=== PATIENT | female | born 1945 | race Hispanic/Latino ===

== ENCOUNTER 2018-06-19 06:25 | Day surgery (SDC) | payer MEDICARE ==
[2018-06-16 12:52] VITALS: BMI 24.7
--- NOTE | 2018-06-16 21:32 | HP ---
DATE OF EXAM: 06/16/2018 REASON FOR ADMISSION: Left heart cath possible angioplasty, abnormal stress test. BRIEF CLINICAL HISTORY: This is a 73-year-old female with past medical history significant for gouty arthritis, anxiety disorder, headache, two episode of syncope on 03/29/2018. The patient referred for cardiac evaluation. The patient underwent stress test complaining of shortness of breath, dyspnea on exertion. Stress test is abnormal. The patient scheduled for elective cardiac cath possible angioplasty. PAST MEDICAL HISTORY: Significant for gouty arthritis, hypertension, and hyperlipidemia. SOCIAL HISTORY: Denies any history of alcohol abuse. CURRENT MEDICATIONS: The patient is taking melatonin 5 mg daily, fenofibrate that is TriCor 145 mg daily, aspirin 81 mg daily, Clonidine 0.3 mg daily, amlodipine 5 mg daily, Zoloft 50 mg daily, Accupril 40 mg daily, and Pravachol 40 mg daily. ALLERGIES: NO KNOWN DRUG ALLERGIES. RECENT CARDIAC WORKUP FOLLOWS: The patient had an echocardiography done at [facility] dated 06/02/2018, that showed moderate concentric LVH ejection fraction 60% to 65%, no regional wall motion abnormality noted. LV filling pattern consistent with diastolic dysfunction, trace tricuspid valve regurgitation, mild aortic regurgitation noted, trace to mild mitral regurgitation noted dated again 06/06/2014. RV systolic pressure 37.8. The patient had a stress test done. The patient walked on the treadmill with the Garfield protocol, walked for total 9 minutes and 18 seconds. The patient did not develop any chest pain or any symptoms of ischemia but nuclear scan showed abnormal myocardial perfusion study, partially reversible basal anterolateral and inferolateral defect with history of ischemia, ejection fraction reported 67%. PHYSICAL EXAMINATION: VITAL SIGNS: Height of the patient 5 feet 2 inches, weight of the patient 135 pounds, body mass index 24.7 kg/m2, temperature afebrile, heart rate 78, and blood pressure 110/80. HEENT: PERRLA. Extraocular muscles intact. NECK: Supple. No carotid bruits or thyromegaly. CHEST: Clear to auscultation. HEART: S1 and S2 regular. ABDOMEN: Soft. EXTREMITIES: Clubbing and cyanosis, negative. LABORATORY DATA: Blood workup pending. IMPRESSION: A 73-year-old female with past medical history significant for hypertension, hyperlipidemia, gouty arthritis, history of syncope two episode, history of chest pain, dyspnea on exertion, underwent stress test that is abnormal. The patient is scheduled elective cardiac catheterization. The patient also had aortic regurgitation, trace to mild mitral regurgitation and tricuspid regurgitation. RV systolic pressure at 37. RECOMMENDATIONS: Risks, benefits, alteratives discussed with the patient. The patient will proceed for cardiac catheterization. We load with aspirin, Plavix, review the lab when available and proceed for cardiac catheterization. Further recommendation after cardiac catheterization. Thank you Dr. Ji Cheng for providing us the opportunity in taking care of the patient, Denise Garcia. Iona Bean MD
[2018-06-19] MEDS ORDERED: Iohexol 350mgl/ml 50 ML ONE (06:49)
[2018-06-19] MEDS ORDERED: Iodixanol 320 MG/ML 200 ML BOTTLE IV ONE (06:49)
[2018-06-19] MEDS ORDERED: Nitroglycerin 50mg in D5W 50 MG/250 ML BOTTLE IV ONE (06:49)
[2018-06-19] MEDS ORDERED: Lidocaine 2% Inj (20ml) ONE ×2 (06:49→10:13)
[2018-06-19] MEDS ORDERED: Iodixanol 320 MG/ML 100 ML BOTTLE IV ONE (06:49)
[2018-06-19] MEDS ORDERED: Verapamil 2 ML ONE (06:49)
[2018-06-19] MEDS ORDERED: Phenylephrine 10 mg/ml Inj ONE (06:49)
[2018-06-19 07:12] LABS: INR 1.17; PROTHROMBIN TIME 13.2 SECONDS (9.4-12.5)
[2018-06-19 07:14] LABS: BASO # 0.11 K/mm3 (0.0-2.0); BASO % 1.1 % (0.0-3.0); EOS # 0.5 (0.0-0.7); EOS % 5.1 % (1.5-5.0); HEMOGLOBIN 12.7 g/dL (12.0-16.0); LYMPH # 1.9 (1.2-3.4); LYMPH % 19.3 % (22.0-35.0); MEAN CELL VOLUME 88.2 fl (80.0-105.0); MEAN CORPUSCULAR HEMOGLOBIN 28.2 pg (25.0-35.0); MEAN CORPUSCULAR HGB CONC 31.9 g/dl (31.0-37.0); MEAN PLATELET VOLUME 9.3 fl (7.0-11.0); MONO # 0.5 (0.1-0.6); RBC 4.51 10^6/uL (3.5-6.1); RED CELL DISTRIBUTION WIDTH 13.7 % (11.5-14.5)
[2018-06-19 07:19] LABS: CALCIUM 10.1 mg/dL (8.4-10.5)
[2018-06-19 08:01] VITALS: O2SAT 100
[2018-06-19] MEDS ORDERED: Midazolam 2 MG/2 ML VIAL ONE (09:16)
[2018-06-19] MEDS ORDERED: Eptifibatide 20 mg/10mL Inj IVP ONE (09:51)
[2018-06-19] MEDS ORDERED: Sodium Chloride 0.9% 1,000 ML IV SCH (11:30)
--- NOTE | 2018-06-19 12:27 | CPOSTOP ---
DATE: 06/19/2018 CARDIOVASCULAR LAB POSTPROCEDURE NOTE PHYSICIAN: Iona Bean MD RENAL TECHNICIAN: Rafael Yip. TYPE OF ANESTHESIA: Moderate conscious sedation. Total 2 mg of Versed and 100 of fentanyl given, periodically. Started 1 mg of Versed and 50 of fentanyl. PRE-PROCEDURE DIAGNOSIS: Syncope, abnormal stress test. PROCEDURES PERFORMED: 1. Left heart catheterization. 2. Attempted percutaneous transluminal coronary angioplasty of mid circumflex chronic total occlusions. FINDINGS: Mild to moderate disease in the LAD. Mild to moderate disease in the RCA. Circumflex totally occluded. Preserved LV function. FINAL DIAGNOSIS: Single-vessel coronary artery disease. POST PROCEDURE PATIENT CONDITION: Stable. VASCULAR ACCESS SITE: Left radial for right femoral artery for attempted PTCA. CLOSURE DEVICE: 1. TR band for the left radial. 2. Angio-Seal for right femoral artery. TOTAL RADIATION DOSE: 28631 milligray unit. TOTAL FLUORO TIME: 38.9 minutes. Iona Bean MD MTDD
--- NOTE | 2018-06-19 15:45 | CARD ---
APPROVED REPORT Date of service: 06/19/2018 Procedure(s) performed: Left Heart Catheterization PTCA with Stenting of Mid Cx attempted, PALEOBOTANIST ( unsuccessful). HISTORY The patient is a 73 year-old female with a history of : most recent EF: 67%. (EF Method: RADIONUCLIDE), hypertension , dyslipidemia , Hx of syncope. INDICATION The indication(s) include : positive stress test. CASE TECHNIQUE The patient was brought electively to the Cardiac Catheterization Laboratory in a fasting state and was prepped and draped in a sterile manner. The left wrist was infiltrated with 2% Lidocaine subcutaneous anesthesia. A sheath was inserted into the left femoral artery without difficulty. Coronary angiography was performed using coronary diagnostic catheters. The left coronary system was accessed and visualized with a Diagnostic ,5F JL 4 CATH DXT 100 CM catheter. The right coronary system was accessed and visualized with a Diagnostic , 5F JL 4 CATH DXT 100 CM catheter. The left ventricle was accessed and visualized with a 5F PIGTAIL 145 CATH DXT 110 CM catheter. Left ventricular/Aortic Valve gradient assessed on pullback. Left ventriculogram was performed in AWAD projection. Closure device was deployed with a 6 Fr Angio-Seal without any complications. The patient tolerated the procedure well and there were no complications associated with the procedure. Cardiac cath done with left Radial, but for PTCA RFA approach adopted as unanle to engage with guider B/c of tortous course of left sub clavian artery. Vessel Analysis The patient's coronary anatomy is right dominant. The left main coronary artery is a medium size vessel with diffuse calcification noted throughout this vessel and without significant stenosis. The left main trifurcates to the left anterior descending, circumflex, and ramus. The left anterior descending artery is a medium size vessel with diffuse calcification noted throughout this vessel and without significant stenosis. There is a 30% stenosis in the mid segment. The first diagonal branch is a medium size vessel with diffuse calcification noted throughout this vessel and without significant stenosis. The circumflex artery is a medium size vessel with diffuse calcification noted throughout this vessel and with significant stenosis. There is a 100% stenosis in the mid segment. The first obtuse marginal branch is a medium size vessel with diffuse calcification noted throughout this vessel and without significant stenosis. The second obtuse marginal branch is a small size vessel . The ramus intermedius artery is a medium size vessel with diffuse calcification noted throughout this vessel and without significant stenosis. The right coronary artery is a large size vessel with diffuse calcification noted throughout this vessel and without significant stenosis. but tortous vessel There is a 50-60% stenosis in the mid segment. Long tubular stenosis. The right posterior descending artery is a large size vessel with diffuse calcification noted throughout this vessel and without significant stenosis. very tortous vessel The right posterolateral branch is a medium size vessel with diffuse calcification noted throughout this vessel and without significant stenosis. RCA gives collaterals to Distal Cx. Left Ventricle The left ventricle is normal in size with normal contractility. There was no cardiomyopathy. The left ventricular ejection fraction is estimated to be 60-65%. The left ventricular end diastolic pressure is 15 mmHg. There was no gradient across the aortic valve upon pullback. PCI Technique Lesion Anticoagulation was achieved with Heparin. Percutaneous coronary intervention was performed on the mid circumflex artery segment. The lesion stenosis prior to intervention was 100% with [place] 0 flow. A 6 Fr XB 3 Guide Catheter was used to engage the ostium. A 0.014 x 300 cm Choice PT Floppy Interventional Guidewire was used to cross the lesion. BALLOON DILATION A Balloon catheter 2.0 x 12 mm Mini Trek OTW was inserted and inflated up to dior for seconds. Final angiography reveals 95 % stenosis with [place] 1 flow. COMMENTS Successfully crossed with wire But unable to cross with lowest profile ballonn 1.2/10 Conclusion [place] vessel critical Disease Mid to Distal Cx PALEOBOTANIST ( chroninally Total Occluded). Mild to moderate Disease in LAD and Mid RCA RCA gives collaterals to Distal Cx. Preserved LV FX. EF-60-65%, EDP-15 mmof hg. PTCA of Cx attempted but unable to cross with lowest profile Balloon (2/10), though wire was crossed. Recommendations Aggressive Medical TherapyCardiac Risk Reduction Program Weight Loss Reduction Program F/u Stress test in 6 -12 months, to monitor progression of CAD in RCA, ( RCA may need PCI in future). CC; Po Villavicencio MD.
[2018-06-19 16:19] LABS: BASO # 0.04 K/mm3 (0.0-2.0); BASO % 0.6 % (0.0-3.0); EOS # 0.2 (0.0-0.7); EOS % 2.8 % (1.5-5.0); HEMOGLOBIN 10.1 g/dL (12.0-16.0); LYMPH # 1.5 (1.2-3.4); LYMPH % 23.3 % (22.0-35.0); MEAN CELL VOLUME 87.2 fl (80.0-105.0); MEAN CORPUSCULAR HEMOGLOBIN 27.4 pg (25.0-35.0); MEAN CORPUSCULAR HGB CONC 31.5 g/dl (31.0-37.0); MEAN PLATELET VOLUME 8.8 fl (7.0-11.0); MONO # 0.4 (0.1-0.6); MONO % 5.8 % (1.0-6.0); RBC 3.68 10^6/uL (3.5-6.1); RED CELL DISTRIBUTION WIDTH 13.6 % (11.5-14.5); WHITE BLOOD COUNT 6.4 10^3/uL (4.5-11.0)
[2018-06-19 16:39] LABS: CALCIUM 8.7 mg/dL (8.4-10.5)
--- NOTE | 2018-06-19 17:08 | CARD ---
APPROVED REPORT Date of service: 06/19/2018 EKG Measurement Heart [id number] <Conclusion> Sinus bradycardia Otherwise normal ECG
--- NOTE | 2018-06-19 17:12 | CARD ---
APPROVED REPORT Date of service: 06/19/2018 EKG Measurement Heart [id number]-1 [id number] <Conclusion> Sinus bradycardia Otherwise normal ECG
[2018-06-19 17:34] LABS: BASO # 0.04 K/mm3 (0.0-2.0); BASO % 0.5 % (0.0-3.0); EOS # 0.2 (0.0-0.7); EOS % 3.1 % (1.5-5.0); HEMOGLOBIN 10.2 g/dL (12.0-16.0); LYMPH # 1.5 (1.2-3.4); LYMPH % 20.4 % (22.0-35.0); MEAN CELL VOLUME 87.7 fl (80.0-105.0); MEAN CORPUSCULAR HEMOGLOBIN 27.9 pg (25.0-35.0); MEAN CORPUSCULAR HGB CONC 31.9 g/dl (31.0-37.0); MEAN PLATELET VOLUME 8.9 fl (7.0-11.0); MONO # 0.5 (0.1-0.6); MONO % 6.1 % (1.0-6.0); RBC 3.65 10^6/uL (3.5-6.1); RED CELL DISTRIBUTION WIDTH 13.7 % (11.5-14.5); WHITE BLOOD COUNT 7.4 10^3/uL (4.5-11.0)
[2018-06-19 18:06] VITALS: BP 142/68; PULSE 18; RESP 62; TEMP 98.1
--- NOTE | 2018-06-21 04:03 | DS ---
BRIEF CLINICAL HISTORY: This is a 73-year-old female with past medical history significant for gouty arthritis, anxiety disorder, headache, and admitted with syncope twice. The patient underwent cardiac workup that shows abnormal stress test. The patient underwent cardiac catheterization yesterday that revealed moderate disease in LAD, moderate disease in RCA, and totally occluded circumflex, mid PROJECT PORTFOLIO ANALYST. The patient underwent attempted PTCA of circumflex, unsuccessful. The patient is currently being discharged to followed up with Dr. Bean in one week. MEDICATIONS: At the time of discharge include baby aspirin 81 mg daily, TriCor 145 mg daily, clonidine as before taking, melatonin 5 mg as before, Zoloft 50 mg daily, Accupril 40 mg daily, and Pravachol 40 mg daily. FINAL DIAGNOSES: Coronary artery disease, one-vessel circumflex totally occluded. PRINCIPAL PROCEDURES: This admission include: 1. Left heart catheterization. 2. Attempted of the circumflex. PLAN: Follow up with Dr. Bean in one week. Iona Bean MD
== END 2018-06-19 20:00 | disposition home or self-care (01) ==
LOC: CATH 06:25 → 2RSO 11:27 → CATH 20:00
PROVIDERS: ATTEND Internal Medicine Cardiovascular Disease
DX: I25.10 Atherosclerotic heart disease of native coronary artery without angina pectoris (principal); I10 Essential (primary) hypertension; E78.5 Hyperlipidemia, unspecified; M10.9 Gout, unspecified; F41.9 Anxiety disorder, unspecified; I08.3 Combined rheumatic disorders of mitral, aortic and tricuspid valves
CPT/HCPCS: 36415; 80048; 80061; 85025; 85175; 85610; 85730; 86850; 86900; 92920; 93005; 93458; 99152; 99153; C1725 ×3; C1760; C1769 ×5; C1887 ×2; C2629; J1644 ×2; J2250; J3010; J7040; Q9966; Q9967 ×2